=== PATIENT | male | born 1965 | race African-American/Black ===

== ENCOUNTER 2021-06-11 11:56 | Emergency (ER) | payer BC ==
[~2021-06-11] VITALS: Ht 188 cm; Wt 83.9 kg
--- NOTE | 2021-06-11 12:20 | NUR ---
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 In room air and denies SOB. Respiration regular and unlabored. Will continue to monitor the patient. HD Days are
[2021-06-11 12:23] LABS: BASOPHILS # (AUTO) 0.1 K/uL (0.0-0.2); BASOPHILS % (AUTO) 0.8 % (0.0-2.0); EOSINOPHILS % (AUTO) 3.3 % (0.0-6.0); HEMATOCRIT 34 % (39-51); HEMOGLOBIN 11.1 g/dL (13.5-17.5); LYMPHOCYTES # (AUTO) 1.4 K/uL (0.8-4.8); LYMPHOCYTES % (AUTO) 20.9 % (20.0-44.0); MEAN CORPUSCULAR HGB CONC 33 g/dl (31.0-36.0); MEAN CORPUSCULAR VOLUME 80 fL (80-96); MONOCYTES # (AUTO) 0.7 K/uL (0.1-1.30); MONOCYTES % (AUTO) 9.8 % (2.0-12.0); NEUTROPHILS # (AUTO) 4.5 K/uL (1.8-8.9); NEUTROPHILS % (AUTO) 65.2 % (43.0-81.0); PLATELET COUNT (AUTO) 274 K/uL (150-450); RED BLOOD CELL COUNT(AUTO) 4.24 MIL/uL (4.5-6.0); WHITE BLOOD COUNT (AUTO) 6.8 K/uL (4.3-11.0)
--- NOTE | 2021-06-11 12:29 | NUR ---
Dr Vincent at the bedside
[2021-06-11 13:25] LABS: ALBUMIN 3.1 g/dL (3.4-5.0); BILIRUBIN,TOTAL 0.5 mg/dL (0.2-1.0); CALCIUM, SERUM 8.7 mg/dL (8.5-10.1); POTASSIUM 4.7 mmol/L (3.5-5.1); TOTAL PROTEIN, SERUM 6.9 g/dL (6.4-8.2)
[2021-06-11 13:28] LABS: CREATININE 12.8 mg/dL (0.6-1.3)
[2021-06-11 14:23] VITALS: BP 136/82
--- NOTE | 2021-06-11 14:23 | NUR ---
Patient discharged to home in stable condition. Written and verbal after care instructions given. Patient verbalizes understanding of instruction.
== END 2021-06-11 14:24 | disposition home or self-care (01) ==
LOC: ER 12:06
DX: R22.0 Localized swelling, mass and lump, head (principal); H57.89 Other specified disorders of eye and adnexa; I12.0 Hypertensive chronic kidney disease with stage 5 chronic kidney disease or end stage renal disease; N18.6 End stage renal disease; Z99.2 Dependence on renal dialysis
CPT/HCPCS: 36415; 71045-TC; 80053-TC; 85025-TC